=== PATIENT | male | born 1945 | race African-American/Black ===

== ENCOUNTER 2024-03-28 15:50 | Inpatient (IN) | payer OTHER ==
[2024-03-28 16:01] VITALS: BMI 22.3
[2024-03-28 18:52] LABS: BASO % 0.5 % (0-2.0); EOS % 3.7 % (0-4.5); HEMATOCRIT 47.1 % (35.4-49); HEMOGLOBIN 15.7 GM/dL (11.7-16.9); LYMPH % 32.4 % (8-40); MCH 30.3 pg (25.7-33.7); MCHC 33.2 g/dl (32.0-35.9); MEAN CELL VOLUME 91.4 fl (80-96); MEAN PLT VOLUME 7.5 fl (7.5-11.1); MONO % 9.3 % (3.8-10.2); NEUT % 54.1 % (42.8-82.8); PLATELET COUNT 227 10^3/uL (134-434); RBC 5.16 M/mm3 (4.00-5.60); RDW 14.2 % (11.9-15.9); WHITE BLOOD COUNT 6.7 K/mm3 (4.0-10.0)
[2024-03-28 19:08] LABS: POTASSIUM 5.4 mmol/L (3.5-5.1)
[2024-03-28 19:11] LABS: ALBUMIN 3.3 g/dl (3.4-5.0); BLOOD UREA NITROGEN 18.1 mg/dL (7-18)
[2024-03-28 19:15] LABS: CREATININE 1.2 mg/dL (0.55-1.3)
[2024-03-28 19:16] LABS: BILIRUBIN,TOTAL 0.5 mg/dL (0.2-1); TOT PROT 6.8 g/dl (6.4-8.2)
[2024-03-28 19:19] LABS: N-TERMINAL BNP 35.5 pg/ml (5-450)
[2024-03-28 19:43] VITALS: RESP 18
[2024-03-28 19:56] LABS: URINE APPEARANCE CLEAR; URINE BILIRUBIN NEGATIVE (NEGATIVE); URINE COLOR YELLOW; URINE GLUCOSE (UA) NEGATIVE (NEGATIVE); URINE KETONE NEGATIVE (NEGATIVE); URINE LEUK ESTERASE NEGATIVE (NEGATIVE); URINE NITRITE NEGATIVE (NEGATIVE); URINE PROTEIN NEGATIVE (NEGATIVE)
[2024-03-28] MEDS ORDERED: ACETAMINOPHEN 325 MG TABLET (FP) PO PRN (23:23)
[2024-03-29] MEDS: HEPARIN NA (PORCINE) 5,000 UNITS/ML 1ML VIAL SQ SCH (10:56)
[2024-03-29] MEDS: amLODIPine BESYLATE 2.5 MG TABLET (FP) PO SCH (14:11)
[2024-03-29] MEDS: SODIUM CHLORIDE 0.45% 1,000 ML IV SCH (17:15)
[2024-03-30 09:14] LABS: POTASSIUM 3.9 mmol/L (3.5-5.1)
[2024-03-30 09:29] LABS: ALBUMIN 3.4 g/dl (3.4-5.0); CREATININE 1.1 mg/dL (0.55-1.3)
[2024-03-30 09:30] LABS: BILIRUBIN,TOTAL 0.5 mg/dL (0.2-1); CALCIUM 9.2 mg/dL (8.5-10.1)
[2024-03-30 09:31] LABS: TOT PROT 6.5 g/dl (6.4-8.2)
[2024-04-02 04:36] VITALS: TEMP 98.2
[2024-04-02 11:27] VITALS: BP 116/75; PULSE 71
== END 2024-04-02 18:30 | DRG 57 ==
LOC: JER 15:50 → JERBED 20:57 → J6S 23:27 → OBSVTOIN 03-30 11:32
PROVIDERS: ADMIT Internal Medicine; ATTEND Internal Medicine
DX: G30.9 Alzheimer's disease, unspecified (principal); F02.80 Dementia in other diseases classified elsewhere, unspecified severity, without behavioral disturbance, psychotic disturbance, mood disturbance, and anxiety; N18.30 Chronic kidney disease, stage 3 unspecified; G93.89 Other specified disorders of brain; E78.5 Hyperlipidemia, unspecified; M47.9 Spondylosis, unspecified; R41.0 Disorientation, unspecified; N40.0 Benign prostatic hyperplasia without lower urinary tract symptoms; E87.5 Hyperkalemia; I12.9 Hypertensive chronic kidney disease with stage 1 through stage 4 chronic kidney disease, or unspecified chronic kidney disease
CPT/HCPCS: 36415; 70450-TC; 71045-TC-FY; 72125-TC; 72170-TC-FY; 73502-TC-LT-FY; 73562-TC-LT-FY; 80053; 80061; 81003; 82550; 82553; 83036; 83735; 83880; 84443; 84484; 85025; 87086; 93005; 93010; 93306-TC; 93880-TC; 97116-GP; 97162-GP; 99285-25; G0378; J1644